=== PATIENT | female | born 1960 | race African-American/Black ===

== ENCOUNTER 2019-01-16 09:49 | Emergency (ER) | payer OTHER, MEDICAID ==
[~2019-01-16] VITALS: Ht 170.2 cm; Wt 67.0 kg
[~2019-01-16 09:49] MED LIST: DARU75TA PO; HYDR10SY15 PO; NORV1 PO; TENO60PO PO; VENL-179 PO
[2019-01-16] MEDS ORDERED: KETOROLAC 30MG/ML VIAL IV STA (10:11)
[2019-01-16] MEDS ORDERED: SODIUM CHLORIDE 0.9% 1,000 ML IV ONE (10:11)
[2019-01-16 10:22] LABS: BASOPHILS % 0.9 % (0.0-2.0); EOSINOPHILS % 0.8 % (0.0-5.0); HEMATOCRIT. 44.6 % (36.0-48.0); HEMOGLOBIN. 14.5 g/dL (12.0-16.0); LYMPHOCYTES % 28.9 % (20.0-50.0); MEAN CORPUSCULAR VOLUME 92.5 fL (81.0-99.0); MEAN PLATELET VOLUME 8.4 fl (7.4-10.4); MONOCYTES % 7.7 % (2.0-8.0); NEUTROPHILS % 61.7 % (40.0-76.0); PLATELET 159 x1000/uL (130-400); RED BLOOD CELL COUNT 4.82 mill/uL (4.2-5.4); RED CELL DISTRIBUTION WIDTH 15.3 % (11.6-14.6)
[2019-01-16 10:28] LABS: CHLORIDE 112 mEq/L (98-107)
[2019-01-16 10:31] LABS: PARTIAL THROMBOPLASTIN TIME 32.7 sec (23.4-31.0); PROTHROMBIN TIME 10.3 sec (9.6-11.0)
[2019-01-16] MEDS ORDERED: ASPIRIN 325MG EC TABLET PO ONE (11:45)
[2019-01-16 15:30] VITALS: BP 108/58
== END 2019-01-16 15:53 | disposition short-term general hospital (02) ==
LOC: ER 10:03
DX: R55 Syncope and collapse (principal); M54.5 Low back pain; Z91.81 History of falling; I10 Essential (primary) hypertension; G40.909 Epilepsy, unspecified, not intractable, without status epilepticus
CPT/HCPCS: 36415; 70450; 71045; 80053; 83880; 84484; 85025; 85610; 85730; 93005; 96360; 99285; J7030

== ENCOUNTER 2019-02-20 20:43 | Emergency (ER) | payer OTHER, MEDICAID ==
[~2019-02-20] VITALS: Ht 165.1 cm; Wt 79.0 kg
[2019-02-20] MEDS ORDERED: KETOROLAC 60MG/2ML VIAL IM ONE (22:15)
[2019-02-20] MEDS ORDERED: LIDOCAINE 5% PATCH TOP SCH (22:15)
[2019-02-20] MEDS ORDERED: DIAZEPAM 5 MG TABLET PO ONE (22:15)
[2019-02-21 04:21] VITALS: BP 113/66
== END 2019-02-21 04:24 | disposition home or self-care (01) ==
LOC: ER 22:00
DX: M54.5 Low back pain (principal); I10 Essential (primary) hypertension; Z86.73 Personal history of transient ischemic attack (TIA), and cerebral infarction without residual deficits; Z79.899 Other long term (current) drug therapy
CPT/HCPCS: 72131; 96372; 99284; J1885

== ENCOUNTER 2019-05-07 11:23 | Emergency (ER) | payer OTHER, MEDICAID ==
[~2019-05-07] VITALS: Ht 165.1 cm; Wt 68.0 kg
[2019-05-07] MEDS ORDERED: KETOROLAC 30MG/ML VIAL IM ONE (12:15)
[2019-05-07] MEDS ORDERED: ACETAMINOPHEN 325MG TABLET PO ONE (12:15)
[2019-05-07 13:48] VITALS: BP 127/74
== END 2019-05-07 13:54 | disposition home or self-care (01) ==
LOC: ER 11:23
DX: R07.89 Other chest pain (principal); I10 Essential (primary) hypertension; Z86.73 Personal history of transient ischemic attack (TIA), and cerebral infarction without residual deficits; Z79.899 Other long term (current) drug therapy
CPT/HCPCS: 71046; 93005; 96372; 99283; J1885

== ENCOUNTER 2022-11-14 17:32 | Emergency (ER) | payer OTHER, MEDICAID ==
[~2022-11-14] VITALS: Ht 167.6 cm; Wt 69.0 kg
[2022-11-14 22:52] LABS: BASOPHILS % 0.4 % (0.0-2.0); EOSINOPHILS % 1.4 % (0.0-5.0); HEMOGLOBIN. 14.7 g/dL (12.0-16.0); LYMPHOCYTES % 21.2 % (20.0-50.0); MEAN CORPUSCULAR VOLUME 91.9 fL (81.0-99.0); MEAN PLATELET VOLUME 8.2 fl (7.4-10.4); MONOCYTES % 9.2 % (2.0-8.0); NEUTROPHILS % 67.8 % (40.0-76.0); PLATELET 173 x1000/uL (130-400); RED CELL DISTRIBUTION WIDTH 14.6 % (11.6-14.6)
[2022-11-14] MEDS ORDERED: IPRATROPIUM BROMIDE (0.02%) 0.5MG/2.5ML NEB HHN STA (22:54)
[2022-11-14] MEDS ORDERED: ALBUTEROL (0.083%) 2.5MG/3ML NEB HHN SCH (23:00)
[2022-11-14 23:02] LABS: CHLORIDE 111 mEq/L (98-107)
[2022-11-15] MEDS ORDERED: ALBU6.7H3 INH (01:53)
[2022-11-15] MEDS ORDERED: AZIT250T12 MT (01:54)
[2022-11-15 02:42] VITALS: BP 118/73
== END 2022-11-15 02:55 | disposition home or self-care (01) ==
LOC: ER 17:32
DX: J40 Bronchitis, not specified as acute or chronic (principal); Z20.822 Contact with and (suspected) exposure to COVID-19
CPT/HCPCS: 36415; 71045; 80053; 84145; 84484; 85025; 87426; 87804; 93005; 94640; 99285; C9803